=== PATIENT | male | born 1980 | race African-American/Black ===

== ENCOUNTER 2016-10-09 21:25 | Emergency (ER) ==
[2016-10-09 21:37] VITALS: BP 148/104; TEMP 98.9; BMI 37.1
[2016-10-09] MEDS ORDERED: NORFLEX IM STA (21:43)
[2016-10-09] MEDS ORDERED: TORADOL IM STA (21:43)
[2016-10-09] MEDS ORDERED: NORCO 7.5-325 PO STA (21:44)
[2016-10-09 21:56] LABS: BASOPHILS # (AUTO) 0.1 K/uL (0-0.2); BASOPHILS % (AUTO) 0.6 % (0.0-3.0); EOSINOPHILS # (AUTO) 0.2 K/ul (0.0-0.7); EOSINOPHILS % (AUTO) 2.2 % (0.0-7.0); HEMOGLOBIN 14.9 g/dl (14.0-18.0); IMMATURE GRANULOCYTE % (AUTO) 0.2 % (0.0-5.0); LYMPHOCYTES # (AUTO) 2.6 K/uL (0.60-3.4); LYMPHOCYTES % (AUTO) 32.3 (10.0-50.0); MEAN CORPUSCULAR HEMOGLOBIN 27.2 pg (27.0-31.0); MEAN CORPUSCULAR HGB CONC 33.1 (31.8-35.4); MEAN CORPUSCULAR VOLUME 82.1 fl (80.0-94.0); MONOCYTES # (AUTO) 0.8 K/uL (0.4-2.0); NEUTROPHILS # (AUTO) 4.4 K/ul (2.0-6.9); NEUTROPHILS % (AUTO) 54.7; PLATELET COUNT 334 10^3/uL (140-440); RED BLOOD COUNT 5.48 10^6/ul (4.70-6.10); WHITE BLOOD COUNT 8.03 K/ul (4.2-10.2)
[2016-10-09 22:16] LABS: ALBUMIN 4.2 g/dL (3.4-5.0); ALBUMIN/GLOBULIN RATIO 1.31; ANION GAP 13.3; BILIRUBIN,TOTAL 0.33 mg/dL (0.00-1.20); BUN/CREATININE RATIO 14.87; CALCIUM 9.7 mg/dL (8.2-10.2); CREATININE 1.21 mg/dL (0.60-1.10); POTASSIUM 4.3 mmol/L (3.5-5.1); TOTAL PROTEIN 7.4 g/dL (6.4-8.2)
[2016-10-09 22:26] LABS: ERYTHROCYTE SEDIMENTATION RATE 17 mm/hr (0-15); ESR INTERNAL QC INTERNAL QC VALID
--- NOTE | 2016-10-09 22:37 | CT ---
EXAM: CT scan abdomen pelvis without contrast HISTORY: Lower abdominal pain COMPARISON: None. FINDINGS: Contiguous axial images obtained through the abdomen pelvis without contrast utilizing 3- mm collimation. Sagittal and coronal reconstructions were imaged and reviewed. Visualized lung base s are clear. Gallbladder is fluid filled without cholelithiasis. The liver, pancreas, spleen and a drenal glands have normal unenhanced CT appearance. The abdominal aorta is normal in course and beata iber. The kidneys are morphologically normal. There is a small umbilical hernia containing only fa t. There is a normal appendix.. Bone windows reveals no evidence of lytic or blastic lesions. IMPRESSION: No acute intra-abdominal findings.
--- NOTE | 2016-10-09 22:38 | CT ---
EXAM: CT of the pelvis without contrast. HISTORY: Right pelvic pain. PROCEDURE: Contiguous axial CT images of the pelvis without contrast with coronal and sagittal refo rmats. FINDINGS: The bones are intact with no evidence of fracture. There are small degenerative calcifica tions along the anterior margin of the right hip. There is minimal subcutaneous air in the right fla nk consistent with an injection site. The visualized loops of bowel and appendix are normal in appea cathleen. No free fluid or free air in in the pelvis. The bladder is adequately filled with no abnorm ality identified. The seminal vesicles and prostate gland are unremarkable. Impression: No acute findings in the pelvis. Minimal degenerative change as described. Subcutaneous injection site in the right flank.
[2016-10-09 22:57] LABS: BILIRUBIN,URINE Negative (NEGATIVE); KETONES,URINE Negative (NEGATIVE); LEUKOCYTE ESTERASE ,URINE Negative (NEGATIVE); NITRITE,URINE Negative (NEGATIVE); PROTEIN,URINE Trace (NEGATIVE); URINE, BLOOD Negative (NEGATIVE)
[2016-10-09 23:02] LABS: ADD URINE MICROSCOPIC YES
[2016-10-09 23:03] LABS: BACTERIA,URINE TRACE (NOT PRESENT)
--- NOTE | 2016-10-09 23:31 | ED.PDOC ---
General ED Provider: Dr. BOLA CASTILLO-ER Chief Complaint: Extremity Swelling/Pain Stated Complaint: my hip hurts to move Time Seen by Physician: 23:29 Mode of Arrival: Walk-In Information Source: Patient Exam Limitations: No limitations Primary Care Provider: EMILY GOLD Nursing and Triage Documentation Reviewed and Agree: Yes Musculoskeletal Complaint Exam - Hip/Pelvis Complaint/Exam Location of Pain: Reports: Right, Hip Mechanism of Injury: Reports: No known trauma Onset/Duration: several hours Symptoms Are: Still present Initial Severity: Mild Current Severity: Mild Location: Reports: Discrete Character: Reports: Dull, Aching, Stiffness Aggravating: Reports: Movement, Weight bearing Alleviating: Reports: None Associated Signs and Symptoms: Denies: Swelling, Redness, Bruising, Fever, Weakness, Dizziness, Syncope, Abdominal pain, Knee pain Able to Bear Weight: Yes Septic Arthritis Risk Factors: Reports: None Related Surgical History: Reports: None Pelvis Palpation: Stable Hip/Pelvis Findings: Absent: Extremity shortened, Swelling Tenderness: Present: Right Range of Motion Limited In: Present: Flexion, Extension, Abduction, Adduction, Internal rotation, External rotation NV Bundle Intact Distal to Injury: Yes Differential Diagnoses: Bursitis, Sprain, Strain Review of Systems - Review Of Systems Constitutional: Reports: No symptoms Eyes: Reports: No symptoms Ears, Nose, Mouth, Throat: Reports: No symptoms Respiratory: Reports: No symptoms Cardiac: Reports: No symptoms GI: Reports: No symptoms : Reports: No symptoms Musculoskeletal: Reports: Joint pain, Muscle pain Skin: Reports: No symptoms Neurological: Reports: No symptoms Endocrine: Reports: No symptoms Hematologic/Lymphatic: Reports: No symptoms All Other Systems: Reviewed and Negative Past Medical History - Past Medical History Previously Healthy: Yes Endocrine: Reports: None Cardiovascular: Reports: None Respiratory: Reports: None Hematological: Reports: None Gastrointestinal: Reports: None Genitourinary: Reports: None Neuro/Psych: Reports: None Musculoskeletal: Reports: None Cancer: Reports: None - Surgical History General Surgical History: Reports: None - Family History Family History: Reports: Other (FATHER WITH BLOOD CLOTS) - Social History Smoking Status: Current every day smoker, Light tobacco smoker Hx Substance Use: Yes (occasional marijuana) Alcohol Screening: None - Immunizations Tetanus Shot up to Date: Yes Physical Exam - Physical Exam Appearance: Well-appearing Pain Distress: Mild Eyes: MINAL, EOMI, Conjunctiva clear ENT: Ears normal, Nose normal, Oropharynx normal Neck: Supple Respiratory: Airway patent Cardiovascular: RRR, Pulses normal, No rub, No murmur GI/: Soft, Nontender, No masses, Bowel sounds normal, No Organomegaly Musculoskeletal: Limited ROM Skin: Warm Neurological: Sensation intact Psychiatric: Affect appropriate, Mood appropriate Interpretation - Radiology Interpretation Radiology Interpretation By: Radiologist Radiology Results: Negative Exam Interpreted: CT Scan Re-Evaluation - Re-Evaluation Time of Re-Evaluation: 23:31 Status: Improved Vital Signs Stable: Yes Pain Level: 1 Appearance: NAD Lungs: Clear Skin: Warm and Dry Neuro: Alert and Oriented X3 CV: RRR Critical Care Note - Critical Care Note Total Time (mins): 0 Course - Course Hematology/Chemistry: 10/09/16 21:50 10/09/16 21:50 Orders, Labs, Meds: Lab Review 10/09/16 10/09/16 21:50 22:50 WBC 8.03 RBC 5.48 Hgb 14.9 Hct 45.0 MCV 82.1 MCH 27.2 MCHC 33.1 RDW Coeff of [place] 14.1 Plt Count 334 Immature Gran % (Auto) 0.2 Neut % (Auto) 54.7 Lymph % (Auto) 32.3 [place] % (Auto) 10.0 Eos % (Auto) 2.2 Baso % (Auto) 0.6 Immature Gran # (Auto) 0.0 Neut # 4.4 Lymph # 2.6 [place] # 0.8 Eos # 0.2 Baso # 0.1 ESR 17 H D-Dimer (Manual) 141.39 Sodium 138 Potassium 4.3 Chloride 104 Carbon Dioxide 25 Anion Gap 13.3 BUN 18 Creatinine 1.21 H Estimated GFR (MDRD) 83.00 BUN/Creatinine Ratio 14.87 Glucose 101 H Calcium 9.7 Total Bilirubin 0.33 AST 25 ALT 35 Alkaline Phosphatase 70 Total Protein 7.4 Albumin 4.2 Globulin 3.2 Albumin/Globulin Ratio 1.31 Amylase 76 Lipase 12 Urine Color Yellow Urine Clarity Clear Urine pH 6.0 Ur Specific [place] 1.025 Urine Protein Trace Urine Glucose (UA) Negative Urine Ketones Negative Urine Blood Negative Urine Nitrite Negative Urine Bilirubin Negative Urine Urobilinogen 0.2 Ur Leukocyte Esterase Negative Ur Squamous Epith Cells Not present Urine Bacteria Trace Urine Mucus 1+ Orders Category Date Time Status AMYLASE Stat LAB 10/09/16 21:50 Completed CBC W/ AUTO DIFF Stat LAB 10/09/16 21:50 Completed COMPREHENSIVE METABOLIC PANEL Stat LAB 10/09/16 21:50 Completed CRP [C-REACTIVE PROTEIN] Stat LAB 10/09/16 21:50 Received D-DIMER Stat LAB 10/09/16 21:50 Completed ESR Stat LAB 10/09/16 21:50 Completed LIPASE Stat LAB 10/09/16 21:50 Completed URINALYSIS C & S IF INDICATED Stat LAB 10/09/16 22:50 Completed Hydrocodone Bit/Acetaminophen [[place] 7.5-325] MEDS 10/09/16 21:44 Discontinued 1 tab PO ONCE STA Ketorolac Tromethamine [Toradol] MEDS 10/09/16 21:43 Discontinued 60 mg IM ONCE STA Orphenadrine Citrate [Norflex] MEDS 10/09/16 21:43 Discontinued 60 mg IM ONCE STA CT ABDOMEN/PELVIS WO CONTRAST Stat RADS 10/09/16 21:[address] PELVIS W/O CONTRAST Stat RADS 10/09/16 21:43 Completed Medications Discontinued Medications Generic Name Dose Route Start Last Admin Trade Name Freq PRN Reason Stop Dose Admin Acetaminophen/Hydrocodone Bitart 1 tab 10/09/16 21:44 10/09/16 21:52 [place] 7.5-325 PO 10/09/16 21:45 1 tab ONCE STA Administration Ketorolac Tromethamine 60 mg 10/09/16 21:43 10/09/16 21:55 Toradol IM 10/09/16 21:44 60 mg ONCE STA Administration Orphenadrine Citrate 60 mg 10/09/16 21:43 10/09/16 21:53 Norflex IM 10/09/16 21:44 60 mg ONCE STA Administration Vital Signs: Temp Pulse Resp BP Pulse Ox 10/09/16 21:27 98.9 F 95 H 20 148/104 H 96 Departure - Departure Time of Disposition: 23:31 Disposition: HOME SELF-CARE Discharge Problem: Hip pain, right Instructions: Hip Sprain (ED), Hip Pain (ED) Condition: Good Pt referred to PMD for follow-up: Yes Additional Instructions: medrol dose pack--norflex 100mg q 12hs#20--heat--f/u with pcp Allergies/Adverse Reactions: Allergies No Known Allergies Allergy (Verified 07/16/14 23:05) Home Medications: Ambulatory Orders Albuterol Sulfate 0.083% Neb [Albuterol 0.083% Neb] 1 vial IH Q6H PRN 12/27/12 Fluticasone/Salmeterol 250/50 [Advair 250-50 Diskus] 1 puff IH BID 12/27/12 Disposition Discussed With: Patient
== END 2016-10-09 23:35 | disposition home or self-care (01) ==
LOC: ED 21:25
DX: M25.551 Pain in right hip (principal); F17.210 Nicotine dependence, cigarettes, uncomplicated
CPT/HCPCS: 36415; 80053; 81001; 82150; 83690; 85025; 85379; 85651; 86140; 96372; 99283

== ENCOUNTER 2017-09-09 16:53 | Emergency (ER) ==
[2017-09-09 16:59] VITALS: BP 149/94; TEMP 97.6; BMI 36.3
--- NOTE | 2017-09-09 18:06 | ED.PDOC ---
General ED Provider: Dr. APOLLO FRANCISCO Chief Complaint: Behavioral Complaint Stated Complaint: suicidal ideation Time Seen by Physician: 17:00 (pt stated he had been attention seeking denied suicidal ideation) Mode of Arrival: Walk-In Information Source: Patient Exam Limitations: No limitations Primary Care Provider: EMILY GOLD Nursing and Triage Documentation Reviewed and Agree: Yes (no plan ) Reviewed sepsis parameters & appropriate labs ordered?: Yes System Inflammatory Response Syndrome: Not Applicable Sepsis Protocol: For patient's 13 years and over: Temp is 96.8 and below OR 101 and greater Pulse >90 BPM Resp >20/minute Acutely Altered Mental Status Are patient's symptoms suggestive of a new infection, such as: -Pneumonia -Skin, Soft Tissue -Endocarditis -UTI -Bone, Joint Infection -Implantable Device -Acute Abdominal Infection -Wound Infection -Meningitis -Blood Stream Catheter Infection -Unknown System Inflammatory Response Syndrome: Not Applicable (pt said his is about to leave him is very supset and suicidal offered no further detail) Psychological Complaint Exam - Psychiatric Complaint/Exam Patient Complains Of: Present: Depression. Absent: Suicidal thoughts, Suicidal gestures Onset/Duration: 1 day Symptoms Are: Still present Timing: Constant Episodes Lasting: Hours Initial Severity: Mild Current Severity: Mild Character: Present: Depressed, Frustrated Aggravating: Reports: Recent stress ( is about to leave him) Associated Signs And Symptoms: Denies: Hostile, Confused, Hallucinating, Paranoid behavior, Sleep disturbance, Appetite change Related History: Reports: Recent stressors (see above ). Denies: Suicidal gestures, Homicidal thoughts, Homicidal plan, Homicidal gestures, Prior attempts , Drug ingestion Completed Suicide Risk Factors: Patient In Custody Of Police: No Social Withdrawal Present: No Social Isolation Present: No Prior Suicide Attempt: No Injury From Prior Suicide Attempt: No (none attempted ) Related Surgical History: Reports: None Patient Uncooperative For Exam: No Mood: Present: Depressed Appearance: Present: Clean Thought Process: Present: Logical Insight: Present: Good Memory: Intact Judgement: Normal Danger To Others: No Patient Medically Stable For: Psych evaluation Differential Diagnoses: Anxiety, Depression Review of Systems - Review Of Systems Constitutional: Reports: No symptoms Eyes: Reports: No symptoms Ears, Nose, Mouth, Throat: Reports: No symptoms Respiratory: Reports: No symptoms Cardiac: Reports: No symptoms GI: Reports: No symptoms : Reports: No symptoms Musculoskeletal: Reports: No symptoms Skin: Reports: No symptoms Neurological: Reports: Emotional problems Endocrine: Reports: No symptoms Hematologic/Lymphatic: Reports: No symptoms All Other Systems: Reviewed and Negative Past Medical History - Past Medical History Previously Healthy: Yes Endocrine: Reports: None Cardiovascular: Reports: None Respiratory: Reports: None Hematological: Reports: None Gastrointestinal: Reports: None Genitourinary: Reports: None Neuro/Psych: Reports: None Musculoskeletal: Reports: None Cancer: Reports: None - Surgical History General Surgical History: Reports: None - Family History Family History: Reports: Other (FATHER WITH BLOOD CLOTS) - Social History Smoking Status: Current every day smoker, Light tobacco smoker Hx Substance Use: Yes (occasional marijuana) Alcohol Screening: None Physical Exam - Physical Exam Appearance: Well-appearing, No pain distress, Well-nourished Eyes: MINAL, EOMI, Conjunctiva clear ENT: Ears normal, Nose normal, Oropharynx normal Respiratory: Airway patent, Breath sounds clear, Breath sounds equal, Respirations nonlabored Cardiovascular: RRR, Pulses normal, No rub, No murmur GI/: Soft, Nontender, No masses, Bowel sounds normal, No Organomegaly Musculoskeletal: Normal strength, ROM intact, No edema, No calf tenderness Skin: Warm, Dry, Normal color Neurological: Sensation intact, Motor intact, Reflexes intact, Cranial nerves intact, Alert, Oriented Psychiatric: Affect appropriate, Mood appropriate Critical Care Note - Critical Care Note Total Time (mins): 0 Course - Course Hematology/Chemistry: 09/09/17 17:25 09/09/17 17:25 Orders, Labs, Meds: Lab Review 09/09/17 09/09/17 17:25 17:25 WBC 7.51 RBC 5.58 Hgb 15.1 Hct 45.3 MCV 81.2 MCH 27.1 MCHC 33.3 RDW Coeff of [place] 14.5 Plt Count 408 Immature Gran % (Auto) 0.3 Neut % (Auto) 52.8 Lymph % (Auto) 38.2 [place] % (Auto) 7.5 Eos % (Auto) 0.7 Baso % (Auto) 0.5 Immature Gran # (Auto) 0.0 Neut # (Auto) 4.0 Lymph # (Auto) 2.9 [place] # (Auto) 0.6 Eos # (Auto) 0.1 Baso # (Auto) 0.0 Sodium 140 Potassium 4.1 Chloride 104 Carbon Dioxide 24 Anion Gap 16.1 BUN 18 Creatinine 1.23 H Estimated GFR (MDRD) 81.00 BUN/Creatinine Ratio 14.63 Glucose 97 Calcium 10.2 Total Bilirubin 0.7 AST 37 ALT 48 Alkaline Phosphatase 74 Total Protein 8.2 Albumin 4.4 Globulin 3.8 Albumin/Globulin Ratio 1.16 Salicylate Level mg/dL < 5.0 Acetaminophen < 3 L Plasma/Serum Alcohol < 10.0 Orders Category Date Time Status EKG-(ED ONLY) Stat CARDIO 09/09/17 17:15 Completed ED GUITAR TEACHER APPLIED ONCE EMERGENCY 09/09/17 17:15 Active Mental Health Consult [ED MENTAL HEALTH CONSULT] .ONCE EMERGENCY 09/09/17 17: 15 Active ACETAMINOPHEN Stat LAB 09/09/17 17:25 Completed BLOOD ALCOHOL Stat LAB 09/09/17 17:25 Completed CBC W/ AUTO DIFF Stat LAB 09/09/17 17:25 Completed COMPREHENSIVE METABOLIC PANEL Stat LAB 09/09/17 17:25 Completed DRUG SCREEN, URINE, RAPID Stat LAB 09/09/17 17:15 Ordered SALICYLATE Stat LAB 09/09/17 17:25 Completed URINALYSIS C & S IF INDICATED Stat LAB 09/09/17 17:15 Uncollected Vital Signs: Temp Pulse Resp BP Pulse Ox 09/09/17 16:53 97.6 F 93 H 20 149/94 H 98 Departure - Departure Time of Disposition: 18:28 (with mental health worker at bedside pt categoricaly rejected suicidal ideation or homocidal ideation stated he was just attention seeking ) Disposition: HOME SELF-CARE Discharge Problem: Problem behavior, Depression Instructions: Depression (ED) Condition: Good Pt referred to PMD for follow-up: No IPMP verified?: Yes Allergies/Adverse Reactions: Allergies No Known Allergies Allergy (Verified 09/09/17 16:59) Home Medications: Ambulatory Orders Albuterol Sulfate 0.083% Neb [Albuterol 0.083% Neb] 1 vial IH Q6H PRN 12/27/12 Disposition Discussed With: Patient Discharge Problem: Depression Qualifiers: Depression Type: unspecified Qualified Code(s): F32.9 - Major depressive disorder, single episode, unspecified
== END 2017-09-09 18:46 | disposition home or self-care (01) ==
LOC: ED 16:53
DX: F32.9 Major depressive disorder, single episode, unspecified (principal); F17.210 Nicotine dependence, cigarettes, uncomplicated
CPT/HCPCS: 36415; 80053; 80307; 85025; 93005; 93010; 99283

== ENCOUNTER 2017-09-13 17:11 | Emergency (ER) ==
[2017-09-13 17:18] VITALS: BP 136/90; TEMP 98.2; BMI 35.9
== END 2017-09-13 18:24 | disposition left against medical advice (07) ==
LOC: ED 17:11
DX: R11.2 Nausea with vomiting, unspecified (principal); R10.9 Unspecified abdominal pain
CPT/HCPCS: 99281

== ENCOUNTER 2018-09-24 16:30 | Outpatient (CLI) | END 2018-09-24 16:50 | disposition short-term general hospital (02) | LOC: AMBL 16:30 | PROVIDERS: ATTEND Internal Medicine | DX: T14.8XXA Other injury of unspecified body region, initial encounter (principal); S69.92XA Unspecified injury of left wrist, hand and finger(s), initial encounter; S49.91XA Unspecified injury of right shoulder and upper arm, initial encounter; M25.551 Pain in right hip; M54.9 Dorsalgia, unspecified; V29.9XXA Motorcycle rider (driver) (passenger) injured in unspecified traffic accident, initial encounter ==